=== PATIENT | female | born 2005 ===

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

== ENCOUNTER 2023-04-04 13:39 | Emergency (ER) | payer MEDICAID, SELFPAY ==
--- NOTE | ~2023-04-04 | XR_ITS ---
EXAMINATION: XR CHEST CLINICAL INFORMATION: Chest pain. COMPARISON: 09/26/2018 and 07/04/2018 chest radiographs. TECHNIQUE: Frontal view of the chest was obtained. FINDINGS: Mild hazy opacification in the right lower lung is similar to previous studies. The lungs otherwise clear. The heart and mediastinal structures are unremarkable. XR/XR chest 1V IMPRESSION: Mild hazy opacification in the right lower lung is similar to previous studies consistent with chronic changes. No overt acute abnormality.
--- NOTE | 2023-04-04 13:43 | ECG_ITS ---
Test Reason : chest pain Blood Pressure : / mmHG Vent. Rate : 080 BPM Atrial Rate : 080 BPM P-R Int : 148 ms QRS Dur : 084 ms QT Int : 362 ms P-R-T Axes : 018 036 033 degrees QTc Int : 417 ms Normal sinus rhythm with sinus arrhythmia Normal ECG When compared with ECG of 04-JUL-2018 11:46, No significant changes seen Referred By: Kurt Ellsworth Electronically Signed By:FREDY MENA
[2023-04-04 14:22] VITALS: BP 127/86; PULSE 75; RESP 18; TEMP 37; O2SAT 100; BMI 30.8
--- NOTE | 2023-04-04 14:24 | ED_ITS ---
HPI - General Adult General Chief complaint: Chest Pain Stated complaint: Chest pain 2xweeks Time Seen by Provider: 04/04/23 16:22 Source: patient, RN notes reviewed and old records reviewed Mode of arrival: ambulatory Limitations: no limitations History of Present Illness HPI narrative: 17-year-old female presents for evaluation chest pain Patient reports that she has had chest pain for about 1 and weeks. Her pain is worse with movement. 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 She does not have pain at rest. She has a history of asthma and reports she thought this was causing pain She used her albuterol inhalers without any improvement. Patient denies any coughing, fevers, chills The patient reports that about 4 years ago she was sent to [place] for specialist testing due to ?1 of my valves in my heart not closing all the way. ? She does not follow with cardiology currently. Related Data Previous Rx's Medication Instructions Recorded naproxen 500 mg tablet 500 mg PO BID PRN pain #20 tabs 04/04/23 Allergies Allergy/AdvReac Type Severity Reaction Status Date / Time No Known Allergies Allergy Verified 04/04/23 14:19 [No Known Allergies*] Review of Systems Constitutional: Constitutional: Denies chills and Denies fever(s) Cardiovascular: Cardiovascular: Reports chest pain, Denies chest pain at rest, Reports chest pain with activity and Reports dyspnea Respiratory: Respiratory: Denies cough and Reports dyspnea Gastrointestinal: Gastrointestinal: Denies abdominal pain, Denies nausea and Denies vomiting PMFSH Past Medical History Medical History (Updated 04/04/23 @ 17:00 by Jorge Pedroza) Asthma Social History Social History Advance Directives: No Advance Directives Information Provided: Yes Physical Exam ED Vital Signs: Vital Signs - 24 hr 04/04/23 14:22 04/04/23 15:09 04/04/23 15:57 Temperature 98.6 F 98.7 F Pulse Rate 75 70 70 Respiratory Rate 18 17 20 Blood Pressure 127/86 126/75 111/73 Pulse Oximetry 100 99 100 Oxygen Delivery Method Room Air Room Air Room Air BMI result Body Mass Index 30.8 Const General: healthy appearing, comfortable, no acute distress, alert and awake Nutritional Appearance: well nourished Orientation/consciousness: patient oriented x3 HENMT Head: Yes normocephalic and Yes atraumatic Eyes Eyelids: Yes eyelids normal Conjunctivae: conjunctivae normal Sclerae: sclerae normal Corneas: corneas normal Pupils: Equal, round and reactive pupils present EOM: EOMs intact bilaterally Chest Other: Diffuse anterior wall tenderness without deformity, no crepitus. Resp Effort & Inspection: normal respiratory effort, able to speak in complete sentences, no audible wheezes and not labored Auscultation: clear to auscultation bilaterally Cardio Rate: regular rate Rhythm: regular rhythm GI Inspection: No distended Palpation (GI): Soft to palpation, not firm, nontender, no guarding and not rigid Auscultation: normoactive bowel sounds Skin General skin exam: no rashes or lesions noted and elasticity normal Neuro General: patient oriented x3 Cranial nerves: Yes Equal, round and reactive pupils present and Yes Bilaterally intact EOM present Cognition (Neuro): normal cognition Extrem Other: Moving all extremities well without any obvious deformities Course Course Course Narrative: RME: 17 yold female with pmh of heart valve issue presents to the ED for chest pain when only when bends over. patient states no SOB, leg swelling, calf pain, pleurisy, recent travel, or recent surgyer. EKG and labs ordered Medical Decision Making Medical Decision Making MDM Narrative: 17-year-old female with history of asthma and what she describes as possibly mitral valve stenosis presents for evaluation of chest pain. Her pain is reproducible on exam. She has no pain at rest. The patient's lungs are clear to auscultation, this is not felt to be related to asthma. Chest x-ray shows chronic changes but no focal infiltrates. EKG without ischemia. Initial troponin is negative despite 1/2 weeks of pain. Patient is most likely musculo skeletal in origin. Will refer the patient to Cardiology so that she has local follow-up. Differential Diagnosis Chest pain Chest wall pain Costochondritis Sided Mitral valve stenosis Pneumonia Lab Data [facility] Lab Attestation statement: I reviewed the patient's lab results. 04/04/23 16:05 04/04/23 16:05 Labs: Lab Results 04/04/23 04/04/23 04/04/23 Range/Units 16:05 16:05 16:05 WBC 10.3 (4.8-10.8) X10*3/uL RBC 4.94 (4.20-5.50) X10*6/uL Hgb 13.8 (12.0-16.0) g/dl Hct 40.6 (37.0-47.0) % MCV 82.2 (80.0-98.0) fL MCH 27.9 (27.0-33.0) pg MCHC 34.0 (31.0-35.0) g/dl RDW 12.1 (11.0-16.0) % Plt Count 336 (160-400) X10*3/uL MPV 9.5 (9.4-12.3) fL Immature Gran % (Auto) 0.3 (0.0-0.4) % Neut % (Auto) 64.6 (45-73) % Lymph % (Auto) 19.8 L (20-40) % [facility] % (Auto) 11.5 H (2-11) % Eos % (Auto) 2.8 (0-4) % Baso % (Auto) 1.0 (0-2) % Lymph # (Auto) 2.1 (1.2-4.9) X10*3/uL [facility] # (Auto) 1.2 (0.1-1.2) X10*3/uL Eos # (Auto) 0.3 (0.0-0.4) X10*3/uL Baso # (Auto) 0.1 (0.0-0.2) X10*3/uL Abs Immat Gran (auto) 0.03 (0.00-0.03) X10*3/uL Absolute Neuts (auto) 6.7 (2.0-8.3) x10*3/uL Absolute Nucleated RBC 0.000 (0.0-0.012) X10*3/uL Nucleated RBC % (auto) 0.0 (0.0-0.2) /100WBC PT 11.9 (10.0-13.1) SEC INR 1.0 (0.9-1.1) APTT 31.0 (26.0-36.4) SEC Sodium 141 (135-145) mmol/L Potassium 3.7 (3.3-5.1) mmol/L Chloride 110 H (96-108) mmol/L Carbon Dioxide 22 (22-29) mmol/L Anion Gap 13 (12-20) BUN 11 (9-16) mg/dL Creatinine 0.84 (0.5-1.4) mg/dL Estim Creat Clear Calc 91.0 Estimated GFR > 60 Random Glucose 75 (60-115) mg/dL Calcium 9.6 (8.4-10.2) mg/dL Total Bilirubin 0.4 (0.0-1.0) mg/dL AST 15 (5-31) U/L ALT 17 (0-31) U/L Alkaline Phosphatase 80 (39-117) U/L Troponin I High Sens (<3.5-17.0) ng/L Total Protein 7.7 (6.5-8.0) g/dL Albumin 4.5 (3.5-5.0) g/dL / Range/Units 16:05 WBC (4.8-10.8) X10*3/uL RBC (4.20-5.50) X10*6/uL Hgb (12.0-16.0) g/dl Hct (37.0-47.0) % MCV (80.0-98.0) fL MCH (27.0-33.0) pg MCHC (31.0-35.0) g/dl RDW (11.0-16.0) % Plt Count (160-400) X10*3/uL MPV (9.4-12.3) fL Immature Gran % (Auto) (0.0-0.4) % Neut % (Auto) (45-73) % Lymph % (Auto) (20-40) % [facility] % (Auto) (2-11) % Eos % (Auto) (0-4) % Baso % (Auto) (0-2) % Lymph # (Auto) (1.2-4.9) X10*3/uL [facility] # (Auto) (0.1-1.2) X10*3/uL Eos # (Auto) (0.0-0.4) X10*3/uL Baso # (Auto) (0.0-0.2) X10*3/uL Abs Immat Gran (auto) (0.00-0.03) X10*3/uL Absolute Neuts (auto) (2.0-8.3) x10*3/uL Absolute Nucleated RBC (0.0-0.012) X10*3/uL Nucleated RBC % (auto) (0.0-0.2) /100WBC PT (10.0-13.1) SEC INR (0.9-1.1) APTT (26.0-36.4) SEC Sodium (135-145) mmol/L Potassium (3.3-5.1) mmol/L Chloride (96-108) mmol/L Carbon Dioxide (22-29) mmol/L Anion Gap (12-20) BUN (9-16) mg/dL Creatinine (0.5-1.4) mg/dL Estim Creat Clear Calc Estimated GFR Random Glucose (60-115) mg/dL Calcium (8.4-10.2) mg/dL Total Bilirubin (0.0-1.0) mg/dL AST (5-31) U/L ALT (0-31) U/L Alkaline Phosphatase (39-117) U/L Troponin I High Sens < 2.7 (<3.5-17.0) ng/L Total Protein (6.5-8.0) g/dL Albumin (3.5-5.0) g/dL Independent Interpretation I performed an independent interpretation of an: EKG (Sinus rhythm with a rate of 80 beats per minute. No ectopy, no ST changes) Discharge Plan Discharge Clinical Impression: Chest pain, non-cardiac Patient Disposition: Home, Self-Care Instructions: Chest Pain (ED) Additional Instructions: Your workup in the emergency room today was reassuring. This includes your EKG, blood work, chest x-ray. Your pain is most likely musculoskeletal related Take naproxen twice daily for the pain. You may follow-up with Dr. Matthew, cardiology so you have local follow-up for Cardiology. Prescriptions: New naproxen 500 mg tablet 500 mg PO BID PRN (Reason: pain) Qty: 20 0RF Referrals: Rafael Matthew MD [Physician] - Interventions: ED Discharge Assessment Last Done: 04/04/23 17:08 Discharge Date/Time: 04/04/23 17:08
[2023-04-04 15:09] VITALS: BP 126/75; PULSE 70; RESP 17; O2SAT 99
--- NOTE | 2023-04-04 15:39 | PC.NURSE ---
pt reports chest pressure that has been going on for one month. she reports that it feels similar to when she is having a asthma attack. she used her pump and gave herself a neb tx but it didn't help. 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 pt sinus rhythm on the monitor. vss.
[2023-04-04 15:57] VITALS: BP 111/73; PULSE 70; RESP 20; TEMP 37.1; O2SAT 100
--- NOTE | 2023-04-04 16:06 | MHC.EDTECH ---
THIS PCT ASSUMED CARE OF PATIENT AT 1500 ,VITALS SIGN TAKEN ,BLOOD DRAWN AND SENT TO LAB .
[2023-04-04 16:08] LABS: MANUAL DIFF FLAG NO
[2023-04-04 16:09] LABS: Basophils Absolute Auto 0.1 X10*3/uL (0.0-0.2); Eosinophils Absolute Auto 0.3 X10*3/uL (0.0-0.4); Eosinophils Percent Auto 2.8 % (0-4); Hematocrit 40.6 % (37.0-47.0); Hemoglobin 13.8 g/dl (12.0-16.0); Imm Gran Abs Auto 0.03 X10*3/uL (0.00-0.03); Imm Gran Pct Auto 0.3 % (0.0-0.4); Lymphocytes Absolute Auto 2.1 X10*3/uL (1.2-4.9); Lymphocytes Percent Auto 19.8 % (20-40); Mean Corpuscular Hemoglobin 27.9 pg (27.0-33.0); Mean Corpuscular Volume 82.2 fL (80.0-98.0); Mean Platelet Volume 9.5 fL (9.4-12.3); Monocytes Absolute Auto 1.2 X10*3/uL (0.1-1.2); Monocytes Percent Auto 11.5 % (2-11); Neutrophils Absolute Auto 6.7 x10*3/uL (2.0-8.3); Neutrophils Percent Auto 64.6 % (45-73); Platelet Count 336 X10*3/uL (160-400); Red Blood Count 4.94 X10*6/uL (4.20-5.50); Red Cell Distribution Width 12.1 % (11.0-16.0); White Blood Count 10.3 X10*3/uL (4.8-10.8)
[2023-04-04 16:25] LABS: Prothrombin Time 11.9 SEC (10.0-13.1)
[2023-04-04 16:30] LABS: Alanine Aminotransferase 17 U/L (0-31); Albumin Level 4.5 g/dL (3.5-5.0); Alkaline Phosphatase 80 U/L (39-117); Anion Gap 13 (12-20); Aspartate Amino Transferase 15 U/L (5-31); Bilirubin Total 0.4 mg/dL (0.0-1.0); Blood Urea Nitrogen 11 mg/dL (9-16); Calcium 9.6 mg/dL (8.4-10.2); Carbon Dioxide 22 mmol/L (22-29); Chloride 110 mmol/L (96-108); Estimated Glomerular Filt Rate > 60; Glucose Random 75 mg/dL (60-115); Potassium 3.7 mmol/L (3.3-5.1); Sodium 141 mmol/L (135-145); Total Protein 7.7 g/dL (6.5-8.0)
[2023-04-04 16:38] LABS: Troponin-I High Sensitivity < 2.7 ng/L (<3.5-17.0)
== END 2023-04-04 17:08 | disposition home or self-care (01) ==
PROVIDERS: Physician Assistant; Emergency Provider Internal Medicine
DX: R07.89 Other chest pain (principal); I49.8 Other specified cardiac arrhythmias; Z79.899 Other long term (current) drug therapy
CPT/HCPCS: 36415; 71045; 80053; 84484; 85025; 85610; 85730; 93005; 99284

== ENCOUNTER 2024-10-05 12:25 | Emergency (ER) | payer OTHER, SELFPAY ==
--- NOTE | ~2024-10-05 | XR_ITS ---
EXAMINATION: XR CHEST CLINICAL INFORMATION: coughing. pneumonia COMPARISON: X-ray dated April 04, 2023 TECHNIQUE: Frontal view of the chest was obtained. FINDINGS: Patchy opacity right lung. Low volume right lung. Cardiomediastinal silhouette slightly deviated to the right of the hemithorax. No gross pneumothorax. No gross pleural effusion. Left lung is well aerated. XR/XR chest 1V IMPRESSION: Asymmetric volume loss and acute on chronic airspace disease right lung. Atelectatic component. Overall no gross change. Electronically signed by: Williams Perdomo MD 10/05/2024 01:43 PM EST
[2024-10-05 12:27] VITALS: BP 128/88; PULSE 98; RESP 18; TEMP 37.1; O2SAT 98; BMI 27.1
--- NOTE | 2024-10-05 12:32 | ED_ITS ---
HPI - General Adult General Chief complaint: Upper Respiratory Symptoms Stated complaint: Sore throat, fever Time Seen by Provider: 10/05/24 12:40 Source: patient Mode of arrival: ambulatory Limitations: no limitations History of Present Illness ED Provider: Pete Ellsworth PA-C HPI narrative: 19-year-old female no past medical history presents to the ED for sore throat, slight cough, and congestion. Patient denies any chest pain or shortness of breath. Patient denies any drooling, changing in voice, or weakness. Related Data Previous Rx's ?Medication ?Instructions ?Recorded naproxen 500 mg tablet 500 mg PO BID PRN pain #20 tabs 04/04/23 amoxicillin 875 mg-potassium 1 tab PO Q12H 5 days #10 tabs 10/05/24 clavulanate 125 mg tablet azithromycin 250 mg tablet See Rx Instructions PO .COMPLEX #6 10/05/24 tabs Allergies Allergy/AdvReac Type Severity Reaction Status Date / Time No Known Allergies Allergy Verified 10/05/24 12:30 [No Known Allergies*] Review of Systems Review of Systems: SOre throat Yes all other systems are reviewed and are negative [facility] Past Medical History Medical History (Updated 10/05/24 @ 14:40 by TERESA Byrd) Asthma Physical Exam ED Vital Signs: Vital Signs - 24 hr 10/05/24 12:27 10/05/24 14:38 10/05/24 14:50 Temperature 98.7 F 98.3 F 98.3 F Pulse Rate 98 91 91 Respiratory Rate 18 16 16 Blood Pressure 128/88 124/75 124/75 Pulse Oximetry 98 100 100 Oxygen Delivery Method Room Air Room Air Room Air BMI result Body Mass Index 27.1 Const General: cooperative, healthy appearing, comfortable, no acute distress, well developed, alert, awake and Physically active Orientation/consciousness: patient oriented x3 HENMT Head: Yes normal to inspection, Yes No palpable skull fracture present, Yes normocephalic and Yes atraumatic Throat: Yes posterior oropharynx normal, Yes uvula midline and Yes abnormal tonsil (erythematous) Eyes General: appearance normal, both eyes and all related structures Neck Neck: Yes normal visual inspection, Yes full ROM, Yes no lymphadenopathy, Yes no meningeal signs, Yes trachea midline, Yes supple, No anterior neck swelling and No tender Chest Chest palpation & inspection: normal inspection of the chest and normal palpation of entire chest wall Resp Effort & Inspection: normal respiratory effort and able to speak in complete sentences Cardio Jugular venous distension: no JVD Heart sounds: S1 normal heart sound present and S2 normal heart sound present GI Inspection: Yes normal to inspection and No abdominal wall ecchymosis Palpation (GI): Soft to palpation, not firm, nontender, no guarding and not rigid General: No CVA tenderness and Yes no CVA tenderness Back/Spine/Pelvis Back: no CVA tenderness, No CVA tenderness and No back tenderness Skin General skin exam: no rashes or lesions noted, elasticity normal and turgor normal Neuro General: patient oriented x3, gait normal, tone normal, moves all extremities, Normal light touch and pain sensation, no meningeal signs, no focal motor deficits, CN's II-XI intact bilaterally and normal sensation to monofilament Extrem General: Yes normal to inspection, Yes full ROM and Yes capillary refill normal Psych Appearance: grossly normal, well kempt and not disheveled Course Course Course Narrative: RME: 19-year-old female presents to ED for sore throat 2 days. Pharynx is red. Patient states slight cough some and chest congestion. Patient denies any chest pain or shortness of breath. Negative for signs of peritonsillar abscess. Lungs clear. SARs strep ordered Medical Decision Making Medical Decision Making [facility] Narrative: 19-year-old female presents to ED for sore throat, coughing, and chest congestion. PATIENT WELL-APPEARING. LUNG CLEAR negative for signs of peritonsillar abscess, Nilay's angina, retropharyngeal abscess. Chest x-ray shows acute on chronic right lobe opacity. Due to symptoms will treat as pneumonia. Patient informed to follow up with primary care provider. Patient explained worrisome signs and informed return to the ED immediately.. Differential Diagnosis Differential Diagnoses: The differential diagnosis associated with the presentation includes (COVID, influenza, RSV, strep) Admission/Observation Consideration of admission/observation: Escalation of care including admission/observation considered Lab Data [facility] Lab Attestation statement: I reviewed the patient's lab results. Labs: Lab Results 10/05/24 Range/Units 12:40 Influenza Type A (PCR) NEGATIVE (Negative) Influenza Type B (PCR) NEGATIVE (Negative) RSV RNA Qual (PCR) NEGATIVE (Negative) SARS-CoV-2 RNA (RT-PCR) NEGATIVE (Negative) S. pyogenes GrpA JAYLA Negative (Negative) Independent Interpretation I performed an independent interpretation of an: Plain X-Ray Independent Historian Clinical information obtained from an independent historian. History obtained from or confirmed by: Other (patient) External Record Review External record reviewed: Other (prior visit) Prescription Management I considered prescription management with: Antibiotic Discharge Plan Discharge Clinical Impression: Pharyngitis, CAP (community acquired pneumonia) Patient Disposition: Home, Self-Care Instructions: Pharyngitis (ED), Pneumonia (ED) Additional Instructions: SARs, COVID, influenza, strep swabs came back negative. Chest x-ray shows possible pneumonia. You will be discharged with antibiotics. Recommend follow- up with your primary care provider. Return to the ED immediately for any drooling, change in voice, chest pain, shortness of breath, coughing up blood, or any other concerning symptoms. FINDINGS: Patchy opacity right lung. Low volume right lung. Cardiomediastinal silhouette slightly deviated to the right of the hemithorax. No gross pneumothorax. No gross pleural effusion. Left lung is well aerated. XR/XR chest 1V IMPRESSION: Asymmetric volume loss and acute on chronic airspace disease right lung. Atelectatic component. Overall no gross change. Electronically signed by: Williams Perdomo MD 10/05/2024 01:43 PM [facility] Prescriptions: New azithromycin 250 mg tablet See Rx Instructions .ROUTE .COMPLEX Qty: 6 0RF Rx Instructions: For 250 mg dose pack: take 500 mg today (day 1), then 250 mg for 4 days (days 2-5) amoxicillin-pot clavulanate 875-125 mg tablet 1 tab PO Q12H 5 Days Qty: 10 0RF No Action naproxen 500 mg tablet 500 mg PO BID PRN (Reason: pain) Qty: 20 0RF Stand Alone Forms: Work/School Release Interventions: ED Discharge Assessment Last Done: 10/05/24 14:50 Discharge Date/Time: 10/05/24 14:51 Print Language: Hungarian
[2024-10-05 13:09] LABS: IDNOW Serial# 58CA691E; Strep A Nucleic Acid Negative (Negative)
[2024-10-05 13:35] LABS: Influenza A PCR NEGATIVE (Negative); Influenza B PCR NEGATIVE (Negative); Resp Syncy Virus RNA Qual PCR NEGATIVE (Negative); SARS COV2 PCR INHOUSE NEGATIVE (Negative)
[2024-10-05 14:38] VITALS: BP 124/75; PULSE 91; RESP 16; TEMP 36.8; O2SAT 100
[2024-10-05 14:50] VITALS: BP 124/75; PULSE 91; RESP 16; TEMP 36.8; O2SAT 100
== END 2024-10-05 14:51 | disposition home or self-care (01) ==
PROVIDERS: Physician Assistant; Emergency Provider Emergency Medicine
DX: J18.9 Pneumonia, unspecified organism (principal); J02.9 Acute pharyngitis, unspecified; R50.9 Fever, unspecified; R05.9 Cough, unspecified; R06.02 Shortness of breath; Z03.818 Encounter for observation for suspected exposure to other biological agents ruled out
CPT/HCPCS: 0241U; 71045; 87651; 99283

== ENCOUNTER → 2024-10-05 13:16 | Outpatient (BNV) | payer SELFPAY | PROVIDERS: Emergency Provider Emergency Medicine; Visit Provider Radiology Diagnostic Radiology | DX: J96.20 Acute and chronic respiratory failure, unspecified whether with hypoxia or hypercapnia (principal); J98.11 Atelectasis | CPT/HCPCS: 71045 ==

== ENCOUNTER 2024-12-27 09:37 | Emergency (ER) | payer OTHER, SELFPAY ==
--- NOTE | ~2024-12-27 | XR_ITS ---
EXAMINATION: XR CHEST 1 VIEW HISTORY: cough COMPARISON: Comparison is made with the prior examination dated 04/04/2023. FINDINGS: A single AP portable view of the chest performed at 09/26/2018 is submitted. Again seen is volume loss in the right lung with a curvilinear opacity at the medial aspect of the right hemithorax. 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 The lungs are otherwise clear. There is no pleural effusion, pneumothorax, or pulmonary vascular congestion. The heart is normal in size. The bones are intact. 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 No acute cardiopulmonary abnormality. Electronically signed by: Harsh Escalera MD 12/27/2024 10:12 AM MARY SAPP
[2024-12-27 09:46] VITALS: BP 117/85; PULSE 88; RESP 20; TEMP 36.9; O2SAT 100; BMI 28.1
[2024-12-27 10:41] LABS: IDNOW Serial# 08D9AD1C; Strep A Nucleic Acid Negative (Negative)
[2024-12-27 10:57] LABS: Influenza A PCR POSITIVE (Negative); Influenza B PCR NEGATIVE (Negative); Resp Syncy Virus RNA Qual PCR NEGATIVE (Negative); SARS COV2 PCR INHOUSE NEGATIVE (Negative)
--- NOTE | 2024-12-27 11:20 | ED_ITS ---
HPI - URI/Sore Throat General Chief Complaint: Upper Respiratory Symptoms Stated Complaint: Sore Throat Body Aches Time Seen by Provider: 12/27/24 11:19 Source: patient, RN notes reviewed and old records reviewed Mode of arrival: ambulatory History of Present Illness ED Provider: Claudia Asencio PA-C HPI Narrative: 27-year-old female no significant past medical history presenting to the ED complaining of sore throat, dry cough, chills, myalgias, subjective fever x 2 days. Denies travel, sick contacts, SOB/CP Related Data Previous Rx's ?Medication ?Instructions ?Recorded naproxen 500 mg tablet 500 mg PO BID PRN pain #20 tabs 04/04/23 amoxicillin 875 mg-potassium 1 tab PO Q12H 5 days #10 tabs 10/05/24 clavulanate 125 mg tablet azithromycin 250 mg tablet See Rx Instructions PO .COMPLEX #6 10/05/24 tabs Allergies Allergy/AdvReac Type Severity Reaction Status Date / Time No Known Allergies Allergy Verified 12/27/24 09:48 [No Known Allergies*] Review of Systems Review of Systems: Yes all other systems are reviewed and are negative Constitutional: Constitutional: Reports as per [facility] Past Medical History Attestation statement: The following information was validated with the patient. Source: old records reviewed Medical History Asthma Social History Social History Advance Directives: No Advance Directives Information Provided: Yes Do you have a plan to hurt others: No Plan Physical Exam Vital Signs: Vital Signs: Last Vital Signs Temp 98.5 F 12/27/24 09:46 Pulse 88 12/27/24 09:46 Resp 20 12/27/24 09:46 BP 117/85 12/27/24 09:46 Pulse Ox 100 12/27/24 09:46 O2 Del Method Room Air 12/27/24 09:46 BMI result Body Mass Index 28.1 Const: General: cooperative, healthy appearing and no acute distress Orientation/consciousness: patient oriented x3 Limitations: no limitations HEENT: Head: Yes normal to inspection and Yes atraumatic Ears: hearing grossly normal bilaterally General nose exam: Normal external nose present Face and sinus: Yes normal facial exam Mouth: Normal oral and palatal mucosa present and no drooling Throat: Yes posterior oropharynx normal, Yes uvula midline, No peritonsillar mass, No uvula laterally displaced and No uvular edema Eyes: General: appearance normal, both eyes and all related structures Pupils: Equal, round and reactive pupils present EOM: EOMs intact bilaterally Neck: Neck: Yes normal visual inspection and Yes no meningeal signs Resp: Effort & Inspection: normal respiratory effort and no respiratory distress Auscultation: clear to auscultation bilaterally, no crackles, no rales, no rhonchi and no wheezes Cardio: Rate: regular rate Heart sounds: S1 normal heart sound present and S2 normal heart sound present Skin: Rashes: no rashes Wounds: no wounds Neuro: General: patient oriented x3, tone normal and no meningeal signs Cranial nerves: Yes CN's II-XII intact bilaterally and Yes Equal, round and reactive pupils present Gait exam (Neuro): Normal gait present Extrem: General: Yes normal to inspection Course Course Course Narrative: XR chest 1V 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 No acute cardiopulmonary abnormality. -influenza A + Results discussed with patient including worrisome signs and symptoms and strict return precautions, and when to return to the emergency department. They verbalized understanding and feel safe for discharge at this time. Medical Decision Making Medical Decision Making [facility] Narrative: 27-year-old female no significant past medical history presenting to the ED complaining of sore throat, dry cough, chills, myalgias, subjective fever x 2 days. On exam vital signs stable, NAD, nontoxic appearing, lungs CTA, oropharynx WNL. Concern for viral illness vs strep pharyngitis. No evidence of [employer] SCI[employer]/retropharyngeal abscess. Plan: viral testing, CXR Please refer to course for remaining clinical decision making, interpretation of labs/imaging results, and discussions with consultants and/or family members. Differential Diagnosis Differential Diagnoses: The differential diagnosis associated with the presentation includes As above Lab Data MDM Lab Attestation statement: I reviewed the patient's lab results. Labs: Lab Results 12/27/24 Range/Units 10:13 Influenza Type A (PCR) POSITIVE A (Negative) Influenza Type B (PCR) NEGATIVE (Negative) RSV RNA Qual (PCR) NEGATIVE (Negative) SARS-CoV-2 RNA (RT-PCR) NEGATIVE (Negative) S. pyogenes GrpA JAYLA Negative (Negative) Independent Interpretation I performed an independent interpretation of an: Plain X-Ray Radiology Impression Discussion of test interpretation with radiology: I have reviewed the radiologist's reading. External Record Review External record reviewed: Inpatient record, Office record, Outpatient record, Prior outpatient labs, Prior outpatient radiology, Primary care record and Outside ED record Tests considered The following testing was considered but not selected: As above Prescription Management I considered prescription management with: Pain Medication, Antiviral and Antibiotic Chronic Conditions Patient?s care impacted by: Other Social Determinants Patient?s care significantly limited by Social Determinants of Health including: Other Social Determinant of Health Discharge Plan Discharge Clinical Impression: Influenza Patient Disposition: Home, Self-Care Instructions: Influenza (DC) Additional Instructions: You have the flu No antibiotics are indicated at this time Make sure you are staying hydrated. Drink plenty of fluids. Rest Alternate Tylenol and Motrin at home as needed for body aches and fever Follow-up with your doctor. If symptoms persist or worsen return to the emergency department *If you are a child & not tolerating liquid or urinating for more than 6 hours, or fevers are uncontrolled with medications at home, return to the emergency department* Prescriptions: No Action naproxen 500 mg tablet 500 mg PO BID PRN (Reason: pain) Qty: 20 0RF azithromycin 250 mg tablet See Rx Instructions .ROUTE .COMPLEX Qty: 6 0RF Rx Instructions: For 250 mg dose pack: take 500 mg today (day 1), then 250 mg for 4 days (days 2-5) amoxicillin-pot clavulanate 875-125 mg tablet 1 tab PO Q12H 5 Days Qty: 10 0RF Referrals: Physician,None [Primary Care Provider] - Stand Alone Forms: Work/School Release Print Language: Wolof
[2024-12-27 11:32] VITALS: BP 117/85; PULSE 88; RESP 20; TEMP 36.9; O2SAT 100
== END 2024-12-27 11:33 | disposition home or self-care (01) ==
PROVIDERS: Emergency Provider Emergency Medicine
DX: J10.1 Influenza due to other identified influenza virus with other respiratory manifestations (principal); M79.10 Myalgia, unspecified site; R50.9 Fever, unspecified; Z03.818 Encounter for observation for suspected exposure to other biological agents ruled out
CPT/HCPCS: 0241U; 71045; 87651; 99282; 99283

== ENCOUNTER → 2024-12-27 09:50 | Outpatient (BNV) | payer OTHER, SELFPAY | PROVIDERS: Visit Provider Radiology Diagnostic Radiology | DX: R05.9 Cough, unspecified (principal) | CPT/HCPCS: 71045 ==

== ENCOUNTER → 2025-07-01 09:14 | Outpatient (BNV) | payer OTHER, SELFPAY | PROVIDERS: PCP Student in an Organized Health Care Education/Training Program; Visit Provider Radiology Diagnostic Radiology | DX: R07.9 Chest pain, unspecified (principal); R06.02 Shortness of breath | CPT/HCPCS: 71045; 71260 ==

== ENCOUNTER 2025-07-01 09:28 | Inpatient (IN) | payer OTHER, SELFPAY ==
--- NOTE | ~2025-07-01 | XR_ITS ---
CLINICAL HISTORY: SOB, cough 1 view chest x-ray Comparison: CR/SR - XR CHEST 1 VIEW - 12/27/24 10:02 EST Findings: There is chronic elevation of the right hemidiaphragm and a somewhat ill-defined opacity in the right lower lung field. There is a questionable spiculated opacity in the right hilar region. This appears more prominent on the current study. Heart size is normal. No acute fracture. IMPRESSION: 1. Right perihilar spiculated opacity there is more prominent on the current study. Otherwise no significant interval changes. Please correlate with chest CT. This document has been electronically signed by: Wale Britton MD on 07/01/2025 10:56:30
--- NOTE | ~2025-07-01 | CT_ITS ---
CLINICAL HISTORY: mass vs. pneumonia eval, chest pain, SOB CT chest with contrast Comparison: None provided Findings: The heart size is normal. The visualized thyroid and mediastinum are unremarkable. There is right middle and lower lobe consolidation without definite central obstructing mass lesion. Differential considerations would include pneumonia or subsegmental atelectasis.. The visualized upper abdomen is unremarkable. No acute fractures. IMPRESSION: 1. Right middle and lower lobe consolidation, differential considerations noted.. This document has been electronically signed by: Sharath Galloway MD on 07/01/2025 18:16:20
[2025-07-01 09:37] VITALS: BP 125/84; PULSE 99; RESP 16; TEMP 37.2; O2SAT 97; BMI 24.9
[2025-07-01 10:28] LABS: IDNOW Serial# 55D5AD1C; Strep A Nucleic Acid Positive (Negative)
[2025-07-01 11:39] LABS: Resp Syncy Virus RNA Qual PCR NEGATIVE (Negative); SARS COV2 PCR INHOUSE NEGATIVE (Negative)
--- NOTE | 2025-07-01 14:43 | ED_ITS ---
HPI - General Adult General Chief complaint: Upper Respiratory Symptoms Stated complaint: headache + pressure in chest when breathing Time Seen by Provider: 07/01/25 14:59 Source: patient Mode of arrival: ambulatory Limitations: no limitations History of Present Illness ED Provider: Kimberli Salguero PA-C HPI narrative: Patient is a 19 year old assigned female at with a history of asthma presenting to the emergency department today with chest pressure, cough, and a sore throat. Patient states that over the last few days she has had felt generally unwell and today she woke up with a sore throat, cough, and increased chest tightness. Patient denies any other complaints at this time. Related Data Previous Rx's ?Medication ?Instructions ?Recorded naproxen 500 mg tablet 500 mg PO BID PRN pain #20 t abs 04/04/23 amoxicillin 875 mg-potassium 1 tab PO Q12H 5 days #10 tabs 10/05/24 clavulanate 125 mg tablet azithromycin 250 mg tablet See Rx Instructions PO .COM PLEX #6 10/05/24 tabs Allergies Allergy/AdvReac Type Severity Reaction Status Date / Time No Known Allergies (No Known Allergy Verified 07/01/25 09:38 Allergies*) Review of Systems 2 Constitutional: Constitutional: Reports as per HPI Eyes: Eyes: Reports as per HPI ENT: Reports sore throat Cardiovascular: Comments: chest pressure Respiratory: Respiratory: Reports cough Gastrointestinal: Gastrointestinal: Reports as per HPI Genitourinary: Genitourinary: Reports as per HPI Musculoskeletal: Musculoskeletal: Reports as per HPI Integumentary/Breasts: Skin/Breast: Reports as per HPI Neurologic: Reports as per HPI Psychiatric: Psychiatric: Reports as per HPI Endocrine: Endocrine: Reports as per HPI Hematologic/Lymphatic: Hematologic/Lymphatic: Reports as per HPI Allergic/Immunologic: Allergic/Immunologic: Reports as per HPI [facility] Past Medical History Attestation statement: The following information was validated with the patient. Source: old records reviewed and nursing notes reviewed Medical History Asthma Social History Social History Alcohol intake: current Alcohol intake frequency: holidays/special occasions only Alcohol type: beer, wine and hard liquor Smoked in Last 30 Days: Yes Use of substances other than those prescribed or required for medical reasons: No Advance Directives: No Advance Directives Information Provided: Yes Physical Exam ED Vital Signs: Vital Signs - 24 hr 07/01/25 09:37 07/01/25 16:16 07/01/25 18:40 Temperature 99 F 98.3 F 98.3 F Pulse Rate 99 99 102 H Respiratory Rate 16 18 18 Blood Pressure 125/84 112/67 110/63 Pulse Oximetry 97 99 100 Oxygen Delivery Method Room Air Room Air Room Air 07/01/25 19:10 07/01/25 19:13 Temperature Pulse Rate 110 H Respiratory Rate Blood Pressure Pulse Oximetry 95 Oxygen Delivery Method Room Air BMI result Body Mass Index 24.9 Const General: cooperative, no acute distress, alert and awake Nutritional Appearance: well nourished Orientation/consciousness: patient oriented x3 HENMT Head: Yes normal to inspection and Yes atraumatic Ears: hearing grossly normal bilaterally and external ears normal General nose exam: Normal external nose present, no nasal discharge noted and no epistaxis Face and sinus: Yes normal facial exam, No abrasion and No laceration Mouth: Normal oral and palatal mucosa present, no drooling and no muffled voice Throat: Yes other (bilateral tonsilar exudates and erythema) Eyes General: appearance normal, both eyes and all related structures Periorbital: periorbital findings normal Eyelids: Yes eyelids normal Conjunctivae: conjunctivae normal Pupils: Equal, round and reactive pupils present EOM: EOMs intact bilaterally Neck Neck: Yes normal visual inspection and Yes full ROM Resp Effort & Inspection: normal respiratory effort and able to speak in complete sentences Neuro General: patient oriented x3, moves all extremities and CN's II-XI intact bilaterally Cranial nerves: Yes Equal, round and reactive pupils present Cognition (Neuro): normal cognition Extrem General: Yes normal to inspection, Yes full ROM and Yes capillary refill normal Psych Appearance: grossly normal Mental Status: mental status grossly normal Affect: normal affect Attitude: cooperative Thought process: Normal thought process present Thought content: Normal thought content present Insight: Good insight present (Psych) Course Course Course Narrative: Medical screening exam performed. Please refer to detailed history, exam, evaluation, and management by primary provider. Patient was sore throat, positive for strep. Chest x-ray with abnormal findings, CT ordered.JS Reevaluation(s) Reevaluation #1: 7:31 PM 07/01/2025 (Clive MOORE): Patient has had to this provider at shift change, in summary the patient is a 19 year old female who presented for weakness, shortness of breath, and sore throat. The patient was found to have a leukocytosis of 19,000 and bandemia of 15%, patient's x-ray shows a multilobar pneumonia, confirmed by CT chest as Right middle and lower Lobe consolidation. The patient is being treated for sepsis. Initial provider held a discussion with admitting hospitalist regarding appropriateness for admission, as a result of that discussion patient was signed out to this provider pending evaluation by ED attending Dr. Montes, and an ambulatory pulse ox. At this time the patient has been seen by Dr. Montes, who had a shared decision making conversation with the patient and patient states she does not feel safe going home, additionally while the patient's ambulatory trial did not result in desaturation, it did result in marked tachycardia up to 120 with exertional dyspnea. Given the patient's exertional tachycardia, exertional dyspnea, and feeling unsafe to go home in the setting of multilobar pneumonia with bandemia, we will admit. Patient's case discussed with hospitalist Dr. Brian. Medications Administered Discontinued Medications Generic Name Dose Route Start Last Admin Trade Name Freq PRN Reason Stop Dose Admin Ceftriaxone Sodium 1 gm 07/01/25 16:07 07/01/25 17:11 Ceftriaxone Sodium 1 Gm Vial IVPUSH 07/01/25 16:08 1 gm ONCE ONE Administration Iohexol 100 ml 07/01/25 17:08 07/01/25 17:08 Iohexol 350 Mg/Ml 100 Ml Infus..Btl IV 07/01/25 17:09 65 ml ONCE ONE Administration Medical Decision Making Medical Decision Making [facility] Narrative: Patient is a 19 year old assigned female at with a history of asthma presenting to the emergency department today with chest pressure, cough, and a sore throat.. Patient's physical exam was as noted in the physical exam portion of this note. Patient's blood work showed a WBC count of 19 with a 79% neutrophil count and 15% bands. Patient's chest x-ray showed right perihilar spiculated opacity. Patient's chest CT showed a right middle and lower lobe consolidations. Patient's strep test was positive. I explained my physical exam findings as well as all test results to the patient. I answered all questions asked by the patient. I suspected the patient was septic at 1607 however, she is not in SEVERE sepsis. Patient received IV ceftriaxone. I attempted to admit the patient to the hospitalist service given her concurrent strep + pneumonia as well as her bandemia. However, the hospitalist team declined - requesting the patient be evaluated by the ED attending physician, Dr. Montes, and then a disposition be determined. Patient signed out to TERESA Devries pending Dr. Montes's evaluation and disposition determination. Differential Diagnosis Differential Diagnoses: The differential diagnosis associated with the presentation includes Pneumonia Bandemia Strep pharyngitis Admission/Observation Consideration of admission/observation: Escalation of care including admission/observation considered Please refer to my MDM Rationale portion of this note. Consult Healthcare Provider Management of the patient was discussed with: Hospitalist (Please refer to my MDM Rationale portion of this note. ) Lab Data [facility] Lab Attestation statement: I reviewed the patient's lab results. My interpretation of these results are in the MDM Rationale portion of this note. 07/01/25 15:28 07/01/25 15:28 Labs: Lab Results 07/01/25 07/01/25 Range/Units 10:18 15:28 WBC 19.0 H (4.8-10.8) X10*3/uL RBC 4.62 (4.20-5.50) X10*6/uL Hgb 13.5 (12.0-16.0) g/dl Hct 37.7 (37.0-47.0) % MCV 81.6 (80.0-98.0) fL MCH 29.2 (27.0-33.0) pg MCHC 35.8 H (31.0-35.0) g/dl RDW 12.2 (11.0-16.0) % Plt Count 268 (160-400) X10*3/uL MPV 9.8 (9.4-12.3) fL Immature Gran % (Auto) Cancelled Neut % (Auto) Cancelled Lymph % (Auto) Cancelled [place] % (Auto) Cancelled Eos % (Auto) Cancelled Baso % (Auto) Cancelled Lymph # (Auto) Cancelled [place] # (Auto) Cancelled Eos # (Auto) Cancelled Baso # (Auto) Cancelled Abs Immat Gran (auto) Cancelled Absolute Neuts (auto) Cancelled Absolute Nucleated RBC 0.000 (0.0-0.012) X10*3/uL Nucleated RBC % (auto) 0.0 (0.0-0.2) /100WBC Neutrophils % (Manual) 79 H (45-73) % Band Neutrophils % 15 H (3-5) % Lymphocytes % (Manual) 5 L (20-40) % Monocytes % (Manual) 1 L (2-11) % Abs Neuts (Manual) 17.9 H (2.0-8.3) X10*3/uL Lymphocytes # (Manual) 1.0 L (1.2-4.9) X10*3/uL Monocytes # (Manual) 0.2 (0.1-1.2) X10*3/uL Platelet Estimate NORMAL (NORMAL) Plt Morphology Comment NORMAL RBC Morphology NORMAL Smear Tech's Comments MANUAL DIFF ESR 17 (0-20) MM/HR Sodium 138 (135-145) mmol/L Potassium 3.8 (3.3-5.1) mmol/L Chloride 107 (96-108) mmol/L Carbon Dioxide 20 L (22-29) mmol/L Anion Gap 15 (12-20) BUN 8 L (9-16) mg/dL Creatinine 0.70 (0.5-1.4) mg/dL Estim Creat Clear Calc 118.7 Estimated GFR > 60 Random Glucose 89 (60-115) mg/dL Calcium 9.1 (8.4-10.2) mg/dL Total Bilirubin 0.8 (0.0-1.0) mg/dL AST 20 (5-31) U/L ALT 15 (0-31) U/L Alkaline Phosphatase 67 (39-117) U/L C-Reactive Protein 3.64 H (< or = 0.50) mg/dL Total Protein 7.6 (6.5-8.0) g/dL Albumin 4.6 (3.5-5.0) g/dL Beta HCG, Quant < 2 mIU/mL Influenza Type A (PCR) NEGATIVE (Negative) Influenza Type B (PCR) NEGATIVE (Negative) RSV RNA Qual (PCR) NEGATIVE (Negative) SARS-CoV-2 RNA (RT-PCR) NEGATIVE (Negative) S. pyogenes GrpA JAYLA Positive A (Negative) Independent Interpretation I performed an independent interpretation of an: Plain X-Ray and CT Scan Interpretation: My interpretation is in agreement with the radiologist's impression of these imaging studies. L Report Number: [id number]: Total DLP = 156.00 mGy-cm CLINICAL HISTORY: mass vs. pneumonia eval, chest pain, SOB CT chest with contrast Comparison: None provided Findings: The heart size is normal. The visualized thyroid and mediastinum are unremarkable. There is right middle and lower lobe consolidation without definite central obstructing mass lesion. Differential considerations would include pneumonia or subsegmental atelectasis.. The visualized upper abdomen is unremarkable. No acute fractures. IMPRESSION: 1. Right middle and lower lobe consolidation, differential considerations noted. This document has been electronically signed by: Sharath Galloway MD on 07/01/2025 18:16:20 Dictated By: Sharath Galloway MD Signed By: Electronically signed by Sharath Galloway MD 07/01/25 1817 CLINICAL HISTORY: SOB, cough 1 view chest x-ray Comparison: CR/SR - XR CHEST 1 VIEW - 12/27/24 10:02 EST Findings: There is chronic elevation of the right hemidiaphragm and a somewhat ill-defined opacity in the right lower lung field. There is a questionable spiculated opacity in the right hilar region. This appears more prominent on the current study. Heart size is normal. No acute fracture. IMPRESSION: 1. Right perihilar spiculated opacity there is more prominent on the current study. Otherwise no significant interval changes. Please correlate with chest CT. This document has been electronically signed by: Wale Britton MD on 07/01/2025 10:56:30 Dictated By: Wale Britton MD Signed By: Electronically signed by Wale Britton MD 07/01/25 1057 Radiology Impression Discussion of test interpretation with radiology: I have reviewed the radiologist's reading. Critical Care Time Critical Care Time Critical Care Time: Yes Total Critical Care Time: 38 Attestation: I spent 38 minutes of Critical Care Time with this patient. This does not include time spent on separately reported billable procedures. Discharge Plan Discharge Clinical Impression: Bandemia, Pneumonia, Strep pharyngitis Patient Disposition: Admitted As Inpatient Print Language: Polish
[2025-07-01 15:39] LABS: Hematocrit 37.7 % (37.0-47.0); Hemoglobin 13.5 g/dl (12.0-16.0); Mean Corpuscular HGB Conc 35.8 g/dl (31.0-35.0); Mean Corpuscular Hemoglobin 29.2 pg (27.0-33.0); Mean Corpuscular Volume 81.6 fL (80.0-98.0); NRBC Abs Auto 0.000 X10*3/uL (0.0-0.012); NRBC Pct Auto 0.0 /100WBC (0.0-0.2); Platelet Count 268 X10*3/uL (160-400); Red Blood Count 4.62 X10*6/uL (4.20-5.50); White Blood Count 19.0 X10*3/uL (4.8-10.8)
[2025-07-01 16:02] LABS: Alanine Aminotransferase 15 U/L (0-31); Albumin Level 4.6 g/dL (3.5-5.0); Alkaline Phosphatase 67 U/L (39-117); Anion Gap 15 (12-20); Aspartate Amino Transferase 20 U/L (5-31); Blood Urea Nitrogen 8 mg/dL (9-16); Calcium 9.1 mg/dL (8.4-10.2); Carbon Dioxide 20 mmol/L (22-29); Chloride 107 mmol/L (96-108); Creatinine Clr Calc Pharmacy 118.7; Estimated Glomerular Filt Rate > 60; Neutrophils Percent Manual 79 % (45-73); Potassium 3.8 mmol/L (3.3-5.1); Sodium 138 mmol/L (135-145); Total Protein 7.6 g/dL (6.5-8.0)
[2025-07-01 16:05] LABS: Band Neutrophils Percent 15 % (3-5); Lymphocytes Absolute Manual 1.0 X10*3/uL (1.2-4.9); Lymphocytes Percent Manual 5 % (20-40); Monocytes Absolute Manual 0.2 X10*3/uL (0.1-1.2); Monocytes Percent Manual 1 % (2-11); Neutrophils Absolute Manual 17.9 X10*3/uL (2.0-8.3)
[2025-07-01 16:06] LABS: RBC Morphology NORMAL
[2025-07-01 16:16] VITALS: BP 112/67; PULSE 99; RESP 18; TEMP 36.8; O2SAT 99
[2025-07-01] MEDS: iohexoL 350 MG/ML 100 ML INFUS..BTL IV (17:08)
[2025-07-01 18:40] VITALS: BP 110/63; PULSE 102; RESP 18; TEMP 36.8; O2SAT 100
--- NOTE | 2025-07-01 19:04 | PC.NURSE ---
Upon O2 ambulation Trial pt maintained dropped to 92% Patient complained of SOB, PT Tachy during trial pt heart rate maintained in the 120's during the period of the trial.
[2025-07-01 19:10] VITALS: PULSE 110
[2025-07-01 19:13] VITALS: O2SAT 95
--- NOTE | 2025-07-01 19:48 | PM.IMHP ---
History of Present Illness Date of Service: 07/01/25 Attending physician on admission: Micth Us Chief Complaint: Shortness of breath Keisha Khan is a 19 years old woman with past medical history significant for asthma presents to the emergency department complaining of shortness on breath that started this morning associated with chest pressure that increased with expiration, dry cough, headache and suggestive fever. She denied wheezing. She did not report any acute gastrointestinal genitourinary symptoms. She vapes nicotine. Denied illicit drug use, marijuana smoking or alcohol abuse. Denied sick contact. In the ED, she was found to have stable vital signs except for mild degree of tachycardia. Her oxygen saturation is normal on room air but according to ED provider the patient desaturated with ambulation. Blood workup showed leukocytosis of 19.0 and bandemia of 15%. CRP is 3.64. There are no significant electrolyte imbalances. CO2 is 20. BUN 8 and creatinine 0.70. LFTs are normal. Viral testing is positive for Streptococcus pyogenes. Chest CT scan with IV contrast showed right middle and lower lobe consolidations. ED tx: Ceftriaxone 1 g IV. Review of Systems Review of Systems: All 12 systems were reviewed and normal except as noted in HPI. [facility] Medical History Asthma Social History Alcohol intake: current Alcohol intake frequency: holidays/special occasions only Alcohol type: beer, wine and hard liquor Smoked in Last 30 Days: Yes Use of substances other than those prescribed or required for medical reasons: No Advance Directives: No Advance Directives Information Provided: Yes Meds Allergies Allergy/AdvReac Type Severity Reaction Status Date / Time No Known Allergies (No Known Allergy Verified 07/01/25 09:38 Allergies*) Active Medications: Current Medications Acetaminophen (Acetaminophen 325 Mg Tablet) 975 mg PO Q6H PRN PRN Reason: Pain, Mild 1-3,fever,headache Albuterol Sulfate (Albuterol Sulfate (0.083%) 2.5 Mg/3 Ml Vial.Neb) 2.5 mg INHALE Q2H PRN PRN Reason: Shortness of Breath/Wheezing Calcium Carbonate (Calcium Carbonate 750 Mg Tab.Chew) 750 mg PO Q4H PRN PRN Reason: Heartburn Ceftriaxone Sodium (Ceftriaxone Sodium 1 Gm Vial) 1 gm IVPUSH Q12H [facility] Enoxaparin Sodium (Enoxaparin Sodium 40 Mg/0.4 Ml Syringe) 40 mg SUBCUT Q24H [facility] Azithromycin 500 mg/ Sodium (Chloride) 250 mls @ 125 mls/hr IV DAILY [facility] Magnesium Hydroxide (Milk Of Magnesia 30 Ml Oral.Susp) 30 ml PO DAILY PRN PRN Reason: Constipation Melatonin (Melatonin 3 Mg Tablet) 6 mg PO BEDTIME PRN PRN Reason: Insomnia Sodium Chloride (0.9 % Sodium Chloride Flush 3 Ml Syringe) 3 ml IVFLUSH QSHIFT [facility] Physical Exam Vital Signs and Narrative: Vital Signs: Last Vital Signs Temp 98.3 F 07/01/25 18:40 Pulse 110 H 07/01/25 19:10 Resp 18 07/01/25 18:40 BP 110/63 07/01/25 18:40 Pulse Ox 95 07/01/25 19:13 O2 Del Method Room Air 07/01/25 19:13 BMI result Body Mass Index 24.9 Constitutional - Awake and Alert, No apparent distress HEENT - PERRLA, EOMI Heart - Tachycardia. Normal rhythm. No murmurs. Lungs - Normal lung expansion, Normal respiratory effort, No respiratory distress. Mild tachypnea. Decreased breath sound at bases. No wheezing. Abdomen - NT / ND; +BS; No rebound or guarding Extremities - no calf tenderness bilaterally, no swelling Musculoskeletal - Normal inspection, normal ROM Skin - Warm/Dry Neurological - Alert & oriented x3. Moving all extremities spontaneously. Normal speech. Psychological - Appropriate affect Results Labs 07/01/25 15:28 07/01/25 15:28 Labs: Laboratory Results - last 24 hr 07/01/25 07/01/25 10:18 15:28 MCV 81.6 MCH 29.2 MCHC 35.8 H RDW 12.2 Plt Count 268 MPV 9.8 Immature Gran % (Auto) Cancelled Neut % (Auto) Cancelled Lymph % (Auto) Cancelled Pope % (Auto) Cancelled Eos % (Auto) Cancelled Baso % (Auto) Cancelled Lymph # (Auto) Cancelled Pope # (Auto) Cancelled Eos # (Auto) Cancelled Baso # (Auto) Cancelled Abs Immat Gran (auto) Cancelled Absolute Neuts (auto) Cancelled Absolute Nucleated RBC 0.000 Nucleated RBC % (auto) 0.0 Neutrophils % (Manual) 79 H Band Neutrophils % 15 H Lymphocytes % (Manual) 5 L Monocytes % (Manual) 1 L Abs Neuts (Manual) 17.9 H Lymphocytes # (Manual) 1.0 L Monocytes # (Manual) 0.2 Platelet Estimate NORMAL Plt Morphology Comment NORMAL RBC Morphology NORMAL Smear Tech's Comments MANUAL DIFF ESR 17 Anion Gap 15 Estim Creat Clear Calc 118.7 Estimated GFR > 60 Random Glucose 89 Calcium 9.1 Total Bilirubin 0.8 AST 20 ALT 15 Alkaline Phosphatase 67 C-Reactive Protein 3.64 H Total Protein 7.6 Albumin 4.6 Beta HCG, Quant < 2 Influenza Type A (PCR) NEGATIVE Influenza Type B (PCR) NEGATIVE RSV RNA Qual (PCR) NEGATIVE SARS-CoV-2 RNA (RT-PCR) NEGATIVE S. pyogenes GrpA JAYLA Positive A Assessment and Plan (1) Pneumonia: Qualifiers: Laterality: unspecified laterality Lung location: unspecified part of lung Pneumonia type: due to unspecified organism Qualified Code(s): J18.9 - Pneumonia, unspecified organism Status: Acute (2) Bandemia: Status: Acute Plan Keisha Khan is a 19 y/o woman presents with: Community-acquired pneumonia, right middle and lower lobe. SIRS criteria: Tachycardic, leukocytosis + bandemia. Hypoxia with ambulation. Check blood cultures and lactic acid stat. Start IV fluids. Continue empiric IV antibiotic therapy with ceftriaxone and azithromycin. Supplemental O2 to keep O2 sat > 90%. Bronchodilator therapy as needed. Code status: Full DVT prophylaxis: Lovenox Patient will need hospitalization for at least 2 midnights for community-acquired pneumonia treatment with IV antibiotics and supplemental oxygen as needed. Quality Stroke Does the patient have a stroke diagnosis?: No VTE Prior VTE?: No VTE Risk Level:: Medical - moderate - high VTE Device Contraindication: Treatment Not Indicated VTE Drug Contraindication: N/A - Med Ordered
[2025-07-01] MEDS: LACTATED RINGERS 1974 ML IV (21:27)
[2025-07-01 22:59] LABS: Appearance Urine Clear; Glucose Urine UA Negative (Negative); PH 6.5 (5.0-9.0); Specific Gravity - Urine 1.025 (1.005-1.025); UMIC TRIGGER UACC YES
[2025-07-01 23:10] LABS: Cannabinoid Screen Urine Not Detected (Not Detect)
[2025-07-01 23:17] LABS: UACC Culture Trigger YES
[2025-07-01 23:44] VITALS: BP 104/60; PULSE 99; RESP 16; TEMP 37.2; O2SAT 99
[2025-07-02] MEDS: 0.9 % Sodium Chloride Flush 3 ML SYRINGE IVFLUSH ×4 (00:22→22:21)
--- NOTE | 2025-07-02 03:30 | PC.NURSE ---
Patient resting comfortably in stretcher bed at this time, call clifford in patient's reach.
[2025-07-02 04:40] LABS: MANUAL DIFF FLAG NO
[2025-07-02 04:42] LABS: Hematocrit 34.0 % (37.0-47.0); Hemoglobin 11.7 g/dl (12.0-16.0); Imm Gran Abs Auto 0.11 X10*3/uL (0.00-0.03); Imm Gran Pct Auto 0.7 % (0.0-0.4); Lymphocytes Absolute Auto 1.3 X10*3/uL (1.2-4.9); Mean Corpuscular HGB Conc 34.4 g/dl (31.0-35.0); Mean Corpuscular Hemoglobin 28.6 pg (27.0-33.0); Mean Corpuscular Volume 83.1 fL (80.0-98.0); NRBC Abs Auto 0.000 X10*3/uL (0.0-0.012); NRBC Pct Auto 0.0 /100WBC (0.0-0.2); Platelet Count 243 X10*3/uL (160-400); Red Blood Count 4.09 X10*6/uL (4.20-5.50); White Blood Count 15.7 X10*3/uL (4.8-10.8)
[2025-07-02 05:02] LABS: Alanine Aminotransferase 10 U/L (0-31); Albumin Level 3.7 g/dL (3.5-5.0); Alkaline Phosphatase 61 U/L (39-117); Anion Gap 12 (12-20); Aspartate Amino Transferase 18 U/L (5-31); Blood Urea Nitrogen 6 mg/dL (9-16); Calcium 8.6 mg/dL (8.4-10.2); Carbon Dioxide 21 mmol/L (22-29); Chloride 111 mmol/L (96-108); Creatinine Clr Calc Pharmacy 125.8; Estimated Glomerular Filt Rate > 60; Potassium 3.9 mmol/L (3.3-5.1); Sodium 140 mmol/L (135-145); Total Protein 6.4 g/dL (6.5-8.0)
[2025-07-02 05:09] VITALS: BP 111/67; PULSE 85; RESP 16; TEMP 36.8; O2SAT 98
--- NOTE | 2025-07-02 08:24 | PC.NURSE ---
Resumed care of pt at 0700, she is resting in bed comfortably, lung sounds clear, breathing even and unlabored. Pt stating she is starting to feel better. Pt offered breathing tx but denies at this time. Pt updated of plan of care, call clifford within reach. Pt is ambulating around the unit to use the bathroom, pt denied lovenox injection this morning, education of medication gone over and reasoning of medication, pt verbalized understanding and stated she is going to make sure she tried and ambulates throughout the day. Call clifford within reach, awaiting bed assignment at this time.
--- NOTE | 2025-07-02 09:03 | PHA.MEDREC ---
Addendum entered by Grace Morgan RPh 07/02/25 09:06: Reviewed by [facility] Original Note: Pharmacy Consult ? Medication Reconciliation Pharmacy has completed the medication reconciliation. patient states she is not on any daily medications.
--- NOTE | 2025-07-02 11:42 | MHC.EDTECH ---
Patient was Ambulated O2 99 with 78-84 HR
--- NOTE | 2025-07-02 11:48 | MHC.CM.PN ---
PT LIVES HER MOTHER IS INDEPEDENT HAS OWN RIDE HOME DC PLAN HOME NO SERVICES
--- NOTE | 2025-07-02 12:02 | MHC.CM.PN ---
PT IS HOMELESS GOES TO [facility] PLAN TBD
[2025-07-02 12:29] VITALS: BP 110/61; PULSE 81; RESP 16; TEMP 36.7; O2SAT 100
[2025-07-02 15:21] VITALS: BMI 29.3
[2025-07-02 15:38] VITALS: BP 120/59; PULSE 83; RESP 18; TEMP 36.5; O2SAT 98
--- NOTE | 2025-07-02 15:39 | HO.PM.IMPN ---
Subjective Subjective Date of Service: 07/02/25 Interval History: Feeling well today. No new complaints. Breathing significantly improved Physical Exam Exam: Exam: General: A&O x3, oriented to time place person and siutaion, comfortable, no pain Cardiac: S1, S2 auscultated with no S3/4, no MRG. Well perfused. Respiratory: Normal breath sounds auscultated throughout all lung zones, without wheezing, rales. Normal rate. GI/ : No abdominal pain on palpation, no masses or distentions. MSK: Normal ambulation without pain at bony prominences or musculature Neurological: Normal neurological examination on overview, without obvious CN II-XII abnormalities. Vital Signs: Vital Signs: Last Vital Signs Temp 98.1 F 07/02/25 12:29 Pulse 81 07/02/25 12:29 Resp 16 07/02/25 12:29 BP 110/61 07/02/25 12:29 Pulse Ox 100 07/02/25 12:29 O2 Del Method Room Air 07/02/25 12:29 BMI result Body Mass Index 29.3 Objective Data Active Medications Acetaminophen (Acetaminophen 325 Mg Tablet) 975 mg PO Q6H PRN PRN Reason: Pain, Mild 1-3,fever,headache Last Admin: 07/01/25 22:47 Dose: 975 mg Documented By: DESMOND Albuterol Sulfate (Albuterol Sulfate (0.083%) 2.5 Mg/3 Ml Vial.Neb) 2.5 mg INHALE Q2H PRN PRN Reason: Shortness of Breath/Wheezing Calcium Carbonate (Calcium Carbonate 750 Mg Tab.Chew) 750 mg PO Q4H PRN PRN Reason: Heartburn Ceftriaxone Sodium (Ceftriaxone Sodium 2 Gm Vial) 2 gm IVPUSH Q24H [facility] Enoxaparin Sodium (Enoxaparin Sodium 40 Mg/0.4 Ml Syringe) 40 mg SUBCUT Q24H [facility] Last Admin: 07/02/25 08:18 Dose: Not Given Documented By: ANAMARIA Non-Admin Reason: Patient Refused Comments: pt ambulatory on unit Azithromycin 500 mg/ Sodium (Chloride) 250 mls @ 125 mls/hr IV Q24H [facility] Last Infusion: 07/01/25 22:50 Dose: Infused Documented By: BARBARA Magnesium Hydroxide (Milk Of Magnesia 30 Ml Oral.Susp) 30 ml PO DAILY PRN PRN Reason: Constipation Melatonin (Melatonin 3 Mg Tablet) 6 mg PO BEDTIME PRN PRN Reason: Insomnia Sodium Chloride (0.9 % Sodium Chloride Flush 3 Ml Syringe) 3 ml IVFLUSH QSHIFT [facility] Last Admin: 07/02/25 08:18 Dose: 3 ml Documented By: ANAMARIA Labs 07/02/25 03:41 07/02/25 03:41 Labs: Laboratory Results - last 24 hr 07/01/25 07/01/25 07/01/25 15:28 20:39 22:52 MCV 81.6 MCH 29.2 MCHC 35.8 H RDW 12.2 Plt Count 268 MPV 9.8 Immature Gran % (Auto) Cancelled Neut % (Auto) Cancelled Lymph % (Auto) Cancelled [place] % (Auto) Cancelled Eos % (Auto) Cancelled Baso % (Auto) Cancelled Lymph # (Auto) Cancelled [place] # (Auto) Cancelled Eos # (Auto) Cancelled Baso # (Auto) Cancelled Abs Immat Gran (auto) Cancelled Absolute Neuts (auto) Cancelled Absolute Nucleated RBC 0.000 Nucleated RBC % (auto) 0.0 Neutrophils % (Manual) 79 H Band Neutrophils % 15 H Lymphocytes % (Manual) 5 L Monocytes % (Manual) 1 L Abs Neuts (Manual) 17.9 H Lymphocytes # (Manual) 1.0 L Monocytes # (Manual) 0.2 Platelet Estimate NORMAL Plt Morphology Comment NORMAL RBC Morphology NORMAL Smear Tech's Comments MANUAL DIFF ESR 17 Anion Gap 15 Estim Creat Clear Calc 118.7 Estimated GFR > 60 Random Glucose 89 Lactic Acid 1.3 Calcium 9.1 Total Bilirubin 0.8 AST 20 ALT 15 Alkaline Phosphatase 67 C-Reactive Protein 3.64 H Total Protein 7.6 Albumin 4.6 Beta HCG, Quant < 2 Urine Color Yellow Urine Appearance Clear Urine pH 6.5 Ur Specific [place] 1.025 Urine Protein Negative Urine Glucose (UA) Negative Urine Ketones Negative Urine Blood Negative Urine Nitrite Negative Ur Leukocyte Esterase Small (1+) H Urine RBC 0-2 Urine WBC 0-5 Ur Squamous Epith Cells 0-2 Urine Bacteria None Seen Hyaline Casts 0-2 Urine Opiates Screen Not Detected Ur Buprenorphine Scrn Not Detected Ur Oxycodone Screen Not Detected Urine Methadone Screen Not Detected Urine Fentanyl Screen Not Detected Ur Barbiturates Screen Not Detected Ur Phencyclidine Scrn Not Detected Ur Amphetamines Screen Not Detected U Benzodiazepines Scrn Not Detected Urine Cocaine Screen Not Detected U Marijuana (THC) Screen Not Detected 07/02/25 03:41 MCV 83.1 MCH 28.6 MCHC 34.4 RDW 12.2 Plt Count 243 MPV 10.3 Immature Gran % (Auto) 0.7 H Neut % (Auto) 82.3 H Lymph % (Auto) 8.4 L [place] % (Auto) 7.3 Eos % (Auto) 0.8 Baso % (Auto) 0.5 Lymph # (Auto) 1.3 [place] # (Auto) 1.1 Eos # (Auto) 0.1 Baso # (Auto) 0.1 Abs Immat Gran (auto) 0.11 H Absolute Neuts (auto) 12.9 H Absolute Nucleated RBC 0.000 Nucleated RBC % (auto) 0.0 Neutrophils % (Manual) Band Neutrophils % Lymphocytes % (Manual) Monocytes % (Manual) Abs Neuts (Manual) Lymphocytes # (Manual) Monocytes # (Manual) Platelet Estimate Plt Morphology Comment RBC Morphology Smear Tech's Comments ESR Anion Gap 12 Estim Creat Clear Calc 125.8 Estimated GFR > 60 Random Glucose 85 Lactic Acid Calcium 8.6 Total Bilirubin 0.6 AST 18 ALT 10 Alkaline Phosphatase 61 C-Reactive Protein Total Protein 6.4 L Albumin 3.7 Beta HCG, Quant Urine Color Urine Appearance Urine pH Ur Specific [place] Urine Protein Urine Glucose (UA) Urine Ketones Urine Blood Urine Nitrite Ur Leukocyte Esterase Urine RBC Urine WBC Ur Squamous Epith Cells Urine Bacteria Hyaline Casts Urine Opiates Screen Ur Buprenorphine Scrn Ur Oxycodone Screen Urine Methadone Screen Urine Fentanyl Screen Ur Barbiturates Screen Ur Phencyclidine Scrn Ur Amphetamines Screen U Benzodiazepines Scrn Urine Cocaine Screen U Marijuana (THC) Screen Assessment and Plan (1) Bandemia: Status: Acute (2) Pneumonia: Status: Acute (3) Asthma: Status: Acute Plan 19-year-old female with a background medical history of asthma, presents to hospital with complaints of dyspnea at rest, dry cough, subjective fever, admitted with sepsis secondary to community-acquired multifocal pneumonia of the right middle and lower lobes, testing positive for strep pyogenes. Sepsis Community-acquired Multifocal pneumonia Tachycardia, tachypnea, leukocytosis, bandemia, hypoxia with ambulation. Blood cultures and lactic acid negative. No evidence of end-organ dysfunction IV fluids started. Treated with ceftriaxone azithromycin intravenously. Plan - continue IV ceftriaxone and azithromycin - monitor blood cultures - maintain oxygen saturation above 90% - continue supplementary oxygen - prednisone 40 mg OD p.o. for 5-7 days - ambulatory oxygen saturation tomorrow Mild persistent asthma Presented with tachypnea and exertional dyspnea, along with ambulatory hypoxia. Plan - continue albuterol and patient - continue IV antibiotics - prednisone 40 mg ODT p.o. for 5-7 days [employer] - VTE: ENOXAPARIN - FULL CODE - REGULAR DIET Total time managing care of this patient today: 35 minutes. Quality Stroke Does the patient have a stroke diagnosis?: No VTE Prior VTE?: No VTE Risk Level:: Medical - moderate - high VTE Device Contraindication: Treatment Not Indicated VTE Drug Contraindication: N/A - Med Ordered
[2025-07-02 19:38] VITALS: BP 112/57; PULSE 68; RESP 18; TEMP 36.1; O2SAT 98
[2025-07-03 03:32] VITALS: BP 128/62; PULSE 64; RESP 17; TEMP 36.9; O2SAT 98
[2025-07-03 07:25] VITALS: BP 112/63; PULSE 77; RESP 16; TEMP 36.9; O2SAT 98
--- NOTE | 2025-07-03 09:19 | MHC.CM.PN ---
Patient DX PNA is discharged to home with PO ABX, self care. She has arranged for a ride home.
--- NOTE | 2025-07-03 11:16 | P.EN_ITS ---
Event Note Date of Service: 07/03/25 Event Note: To whom it may concern, Ms. Keisha Khan has been admitted to the hospital to manage an acute medical problem. We would recommend Ms. Khan to remain out of work for a period of 7 days until she can recover. She can return to work if she feels better prior to this. Please do not hesitate to contact us with any queries or concerns. Regards, Dr. Carlos Engel Attending Hospitalist Asst. Chief Hospitalist Services [facility]
--- NOTE | 2025-07-03 11:18 | PM.DS ---
DS: Providers Provider Date of Service: 07/01/25 Date of admission: 07/01/25 19:43 Date of discharge: 07/03/25 Primary care physician: Linda Varghese MD Attending physician on discharge: Carlos Engel DS: Diagnosis Discharge Diagnosis (1) Bandemia: Status: Acute (2) Pneumonia: Status: Acute (3) Asthma: Status: Acute DS: Summary Status at Discharge Cognitive/behavioral status at discharge: 19-year-old female with a background medical history of asthma, presents to hospital with complaints of dyspnea at rest, dry cough, subjective fever, admitted with sepsis secondary to community-acquired multifocal pneumonia of the right middle and lower lobes, testing positive for strep pyogenes. Sepsis Community-acquired Multifocal pneumonia Acute on chronic exacerbation of mild persistent asthma, without hypoxia Tachycardia, tachypnea, leukocytosis, bandemia, hypoxia with ambulation. Blood cultures and lactic acid negative. No evidence of end-organ dysfunction IV fluids started. Treated with ceftriaxone azithromycin intravenously. Transitioned to azithromycin 500 mg once a day for the next 5 days Currently on prednisone 40 mg ODT p.o. for the next 5 days. Time Attestation Total time managing care of this patient today: 35 mintues. Discharge Coordination Time (in mins): 10 Quality: Safe Use of Opioids Does Pt have an Active Cancer Diagnosis on the Problem List?: No Quality: Stroke Does the patient have a stroke diagnosis?: No Physical Exam Exam: Exam: General: A&O x3, oriented to time place person and situation, comfortable, no pain Cardiac: S1, S2 auscultated with no S3/4, no MRG. Well perfused. Respiratory: Normal breath sounds auscultated throughout all lung zones, without wheezing, rales. Normal rate. GI/ : No abdominal pain on palpation, no masses or distentions. MSK: Normal ambulation without pain at bony prominences or musculature Neurological: Normal neurological examination on overview, without obvious CN II-XII abnormalities. Vital Signs: Vital Signs: Last Vital Signs Temp 98.5 F 07/03/25 07:25 Pulse 77 07/03/25 07:25 Resp 16 07/03/25 07:25 BP 112/63 07/03/25 07:25 Pulse Ox 98 07/03/25 07:25 O2 Del Method Room Air 08/19/25 07:25 BMI result Body Mass Index 29.3 DS: Data Data Completed and Pending Labs on day of discharge: Preliminary micro results at discharge 07/01/25 20:39 Blood Culture - Preliminary Blood - Venous No growth after 24 hours. 07/01/25 20:39 Blood Culture - Preliminary Blood - Venous No growth after 24 hours. Discharge Plan Discharge Anticipated Discharge Date/Time: 07/03/25 09:06 Patient Disposition: Home, Self-Care Discharge Diagnosis: Multifocal right middle and right lower lobe pneumonia, with superimposed acute asthma exacerbation Referrals: Linda Galarza MD [Primary Care Provider, Internal Medicine] - 1 Week Discharge Medications: New prednisone 20 mg Tablet 40 mg PO DAILY 5 Days Qty: 10 0RF azithromycin 500 mg tablet 500 mg PO Q24H 5 Days Qty: 5 0RF Continued medroxyprogesterone 150 mg/mL suspension 150 mg IM Q3M Discharge Orders: Discharge Order (Routine); Ordered 07/03/25 Ordered By: Carlos Engel Diet: Advance to usual diet Activity on Discharge: As tolerated Stand Alone Forms: Patient Portal Discharge page Print Language: Luxembourgish Care Plan Goals: - Continue antibiotics and prednisone until completion - follow-up with PCP within 1 week of discharge - x-ray chest within 1 week Health Concerns: Acute asthma exacerbation Plan of Treatment: As above, continue antibiotics and prednisone, follow up with PCP and obtain chest x-ray within 1 week Assessment: Stable and back to baseline Patient Instructions: Pneumonia (DC)
== END 2025-07-03 11:27 | disposition home or self-care (01) | DRG 720 ==
LOC: HO.ED 19:32 → HO.EDOVER 19:49 → HO.S3 07-02 14:14
PROVIDERS: Physician Assistant Medical; Admitting Provider Internal Medicine; Emergency Provider Emergency Medicine; PCP Student in an Organized Health Care Education/Training Program; Visit Provider Hospitalist
DX: A41.9 Sepsis, unspecified organism (principal); J18.9 Pneumonia, unspecified organism; J45.31 Mild persistent asthma with (acute) exacerbation; J02.0 Streptococcal pharyngitis; Z79.899 Other long term (current) drug therapy
CPT/HCPCS: 36415; 71045; 71260; 80053; 80307; 81001; 81003; 83605; 84702; 85007; 85025; 85027; 85652; 86140; 87040; 87086; 87637; 87651; 99285; J0456; J0696; J1650; J7120; Q9967

== ENCOUNTER → 2025-07-01 19:43 | Outpatient (BNV) | payer OTHER, SELFPAY | PROVIDERS: Admitting Provider Internal Medicine; Emergency Provider Emergency Medicine; PCP Student in an Organized Health Care Education/Training Program; Visit Provider Internal Medicine | DX: J18.9 Pneumonia, unspecified organism (principal); D72.825 Bandemia | CPT/HCPCS: 99223 ==